=== PATIENT | female | born 1975 | race Caucasian/White ===

== ENCOUNTER 2020-07-21 16:06 | Emergency (ER) | payer MEDICAID ==
[~2020-07-21] VITALS: Ht 165.1 cm; Wt 65.0 kg
[2020-07-21 16:14] VITALS: BP 123/64
--- NOTE | 2020-07-21 16:20 | NUR ---
triage: patient arrives with injury to left index finger. she is unsure why/how it was injured. she is crying, tearful, anxious. patient has temp 100.3.
[2020-07-21] MEDS ORDERED: LIDOCAINE-MPF 1%, 5ML ONE (16:43)
[2020-07-21] MEDS ORDERED: HYDROcodone/APAP 5/325 TABLET ONE (16:43)
[2020-07-21] MEDS ORDERED: LIDOCAINE-MPF 1%, 5ML INFIL ONE (17:00)
[2020-07-21] MEDS ORDERED: HYDROcodone/APAP 5/325 TABLET PO ONE (17:00)
[2020-07-21] MEDS ORDERED: L.E.T SOLUTION TP ONE ×2 (17:10→17:12)
--- NOTE | 2020-07-21 17:17 | NUR ---
TASK RN: ERP IN FOR DIGIT BLOCK, PT REFUSING. LET APPLIED. PT INSTRUCTED TO KEEP LET ON WOUND FOR 15 MIN. PT MOSTLY NON-COMPLIANT WITH INSTRUCTIONS SECONDARY TO PAIN.
[2020-07-21] MEDS ORDERED: BENZOCAINE AEROSOL SPRAY 20%, 60ML ONE (17:29)
[2020-07-21] MEDS ORDERED: CEPHALEXIN 500 MG CAPSULE PO ONE (18:00)
[2020-07-21] MEDS ORDERED: PLEASE ENTER ALLERGIES MC SCH (18:00)
[2020-07-21] MEDS ORDERED: SULFAMETH./TRIMETHOPRIM DS 800MG/160MG TABLET PO ONE (18:00)
[2020-07-21] MEDS ORDERED: CEPHALEXIN 500 MG CAPSULE ONE (18:09)
[2020-07-21] MEDS ORDERED: SULFAMETH./TRIMETHOPRIM DS 800MG/160MG TABLET ONE (18:10)
--- NOTE | 2020-07-21 18:14 | NUR ---
TASK RN: CONFIRMED ALLERGIES W PT AND PA. OKAY TO GIVE ABX PER EMAR
--- NOTE | 2020-07-21 18:29 | NUR ---
TASK RN: PT REFUSING OBS PERIOD POST ABX ADMIN AND STATES "I HAVE TO GET HOME- I'VE TAKEN THESE BEFORE". DC EDUCATION PROVIDED, PT DEMONSTRATES UNDERSTANDING. PT AMBULATED STEADILY TO DC WITH RN. PROVIDED [facility]OURCE, CLINIC RESOURCES, AND BUS PASS FOR SAFE TRANSPORT.
== END 2020-07-21 18:31 | disposition home or self-care (01) ==
LOC: ED 18:25
DX: L03.012 Cellulitis of left finger (principal); M79.89 Other specified soft tissue disorders
CPT/HCPCS: 10060; 99284